=== PATIENT | male | born 2000 | race Caucasian/White ===

== ENCOUNTER 2023-01-21 15:58 | Inpatient (IN) | payer SELFPAY ==
[2023-01-21 16:08] VITALS: BP 137/81; PULSE 104; RESP 18; TEMP 36.6; O2SAT 97; BMI 46.2
--- NOTE | 2023-01-21 16:12 | ED_ITS ---
HPI - Abdominal Pain General Time Seen by Provider: 16:12 Date Seen: 01/21/23 Chief Complaint: Abdominal Pain Stated Complaint: Abdominal Pain Time Seen by Provider: 01/21/23 16:07 Source: patient and RN notes reviewed Mode of arrival: ambulatory Limitations: no limitations History of Present Illness HPI narrative: Aneudy is a very pleasant 32-year-old gentleman with history of occasional stomach ulcers treated with PPI eyes, history of elevated BMI who comes to the emergency room with acute abdominal pain with vomiting. Patient notes that his abdominal pain started approximately 24 hours ago. States he did not pay much attention to it but is gradually worsened and is now associated with vomiting that started this morning. He also agrees that his abdomen seems to be more distended. Area of discomfort he shows me is epigastric. He notes no bulging or history of hernias. Denies dysuria diarrhea or constipation. He has not experienced any fevers at this time. He has not taken any medications for discomfort. He is preferring to stay still as movement seems to increase his discomfort. Related Data Home Medications Medication Instructions Recorded Confirmed omeprazole magnesium 20 mg 20 mg PO DAILY 01/21/23 01/21/23 tablet,delayed release (Prilosec OTC) Allergies Allergy/AdvReac Type Severity Reaction Status Date / Time No Known Drug Allergies Allergy Verified 01/21/23 16:11 Review of Systems Status of ROS Reports: 10 or more systems reviewed and unremarkable except as noted in History and below Const Denies: fever or chills ENMT Denies: throat pain or difficulty swallowing Cardio Denies: chest pain or shortness of breath with exertion Resp Denies: shortness of breath GI Reports: abdominal pain, nausea and vomiting; Denies: diarrhea or difficulty swallowing Denies: painful urination or urinary frequency Musculo Denies: back pain Neuro Denies: headache PFSH PFSH Social History What is your current living situation?: I presently have a place to live Problems where you live: no known problems Problems where you live details: n/a In the past 12 months, utilities in danger of being shut off: no In the past 12 mos, have been you worried that your food would run out before you had money to buy more?: never true In the past 12 mos, the food you bought just didn't last and you didn't have money to buy more?: never true Highest level of school completed/degree received: high school graduate Smoking Status: Never smoker How often do you have a drink containing alcohol: 2-4 times a month How many standard drinks containing alcohol do you have on a typical day: 3 or 4 AUDIT-C Alcohol total score: 3 Non-prescribed substance use: denies use Caffeine: Yes (2 bottles of coke) How often does anyone, including family, friends and others, physically hurt you : never How often does anyone, including family, friends and others, insult or talk down to you: never How often does anyone, including family, friends and others, threaten you with harm: never How often does anyone, including family, friends and others, scream or curse at you: never service: No Exam Narrative: Exam Narrative: Alert and oriented. Does appear to be uncomfortable. Eyes are clear oral cavity moist mucous membranes. Heart with a tachycardic rate but normal rhythm. Lungs are clear bilaterally. Abdomen is obese. He has acute tenderness in the right upper quadrant. No masses are palpated. No pain with palpation in the right lower quadrants. Moving all extremities. Movement seems to exacerbate his discomfort. Const: Vital Signs, click to edit/add: Vital Signs - 24 hr 01/21/23 16:08 01/21/23 18:13 Temperature 97.8 F Pulse Rate [Right Pulse Oximeter] 104 H 87 Respiratory Rate 18 20 Blood Pressure [Ri ght Upper Arm] 137/81 Pulse Oximetry 97 97 Oxygen Delivery Me thod Room Air Room Air Documenting provider has reviewed patient's vital signs: yes Course Course Hospital Course: Differential diagnosis includes but is not limited to biliary colic, cholecystitis, esophageal spasm, gastritis, ulcer, small-bowel obstruction, gastroenteritis. Will place IV and use Toradol 15 mg IV, normal saline 1 L and Zofran 4 mg IV for discomfort. Recommend labs to include CBC, comprehensive panel, CRP, lactate and urinalysis. Plan on abdominal CT at this time. Reevaluation(s) Reevaluation #1: Patient noted no improvement with Toradol. Patient given morphine in this did increase his pain relief. CT does show enlarged gallbladder but no obvious stones. Ultrasound however show thickened gallbladder wall with stones in the gallbladder neck. Vital Signs Vital signs: Initial Vital Signs Temperature 97.8 F 01/21/23 16:08 Temperature Source Temporal Artery Scan 01/21/23 16:08 Pulse Rate 104 H 01/21/23 16:08 Pulse Rhythm Regular 01/21/23 16:08 Respiratory Rate 18 01/21/23 16:08 Blood Pressure 137/81 01/21/23 16:08 Blood Pressure Mean 99 01/21/23 16:08 Blood Pressure Position Sitting 01/21/23 16:08 Pulse Oximetry 97 01/21/23 16:08 Oxygen Delivery Method Room Air 01/21/23 16:08 Vital Signs Temperature 97.8 F 01/21/23 16:08 Pulse Rate 104 H 01/21/23 16:08 Respiratory Rate 18 01/21/23 16:08 Blood Pressure 137/81 01/21/23 16:08 Pulse Oximetry 97 01/21/23 16:08 Oxygen Delivery Method Room Air 01/21/23 16:08 Temperature 97.4 F L 01/22/23 11:50 Pulse Rate 93 01/22/23 11:50 Respiratory Rate 26 H 01/22/23 11:50 Blood Pressure 113/51 L 01/22/23 11:50 Pulse Oximetry 96 01/22/23 11:50 Oxygen Delivery Method Room Air 01/22/23 11:50 MDM - Abdominal Pain MDM Narrative Medical decision making narrative: 1. Cholecystitis-stones are in the gallbladder neck. Patient has a thickened gallbladder wall. Patient will be admitted to the [facility] for IV fluids, pain control with planned cholecystectomy tomorrow 01/22/2023. Pain poorly controlled with Toradol but morphine did seem to help. Zofran resolved nausea and vomiting. 2. Microcytic anemia-patient tells me that as a teenager his hemoglobin was down to 7 and I believe he received iron infusions. Hemoglobin today is 9.0 with an MCV is 64. Patient noted to state that he has a history of ulcers but has not noticed any blood in stool. Given Protonix 40 mg x1. Will order guaiac of stools. 3. Disposition-admit to the [facility] under the care of Dr. Melendez, surgical oncologist. She will put in orders for this patient. Lab Data Attestation: I reviewed the patient's lab results. Labs: Lab Results 01/21/23 Range/Units 16:38 WBC 12.65 H (4.50-11.00) K/uL RBC 5.08 (4.30-5.90) m/uL Hgb 9.0 L (13.5-17.5) gm/dL Hct 32.6 L (37.0-53.0) % MCV 64 L (80-100) fL MCH 18 L (26-34) pg MCHC 28 L (32-36) gm/dL RDW Coeff of Jenny 19.3 H (11.5-15.5) % Plt Count 433 (140-440) K/uL Neut % (Auto) 78.0 H (42.0-72.0) % Lymph % (Auto) 14.1 L (20-44) % [place] % (Auto) 6.6 (0.0-11.0) % Eos % (Auto) 1.0 (0.0-7.0) % Baso % (Auto) 0.2 (0.0-3.0) % Neut # (Auto) 9.90 H (1.7-7.0) K/uL Lymph # (Auto) 1.80 (0.90-2.90) K/uL [place] # (Auto) 0.80 (0.00-0.90) K/UL Eos # (Auto) 0.10 (0.00-0.50) K/uL Baso # (Auto) 0.00 (0.00-0.30) K/uL Abs Immat Gran (auto) 0.00 (0.00-0.30) K/uL Imm/Tot Granulo (auto) 0.1 % Diff Slide Review Acceptable Review (Acceptable) Sodium 136 (135-149) mmol/L Potassium 3.4 L (3.6-5.1) mmol/L Chloride 98 (96-114) mmol/L Carbon Dioxide 30 (20-32) mmol/L BUN 7 (5-24) mg/dL Creatinine 0.7 (0.5-1.5) mg/dL Estimated Creat Clear 177.72 Estimated GFR 124 ml/min Glucose 116 H (60-115) mg/dL Lactate 0.9 (0.5-1.9) mmol/L Calcium 9.4 (8.4-10.6) mg/dL Total Bilirubin 0.9 (0.1-1.5) mg/dL AST 21 (12-35) U/L ALT 18 (4-50) U/L Alkaline Phosphatase 83 (40-150) U/L C-Reactive Protein 5.5 H (0.5-1.0) mg/dL Total Protein 8.4 H (6.0-8.3) g/dL Albumin 4.5 (3.3-5.0) g/dL Lipase 32 (23-300) U/L Lab Acknowledgement Test Added Imaging Data CT scan - abdomen: Attestation: I have reviewed the pertinent imaging results. My impression: Thickening of the gallbladder wall and enlargement. Radiologist's impression: ower chest: The visualized lower lungs are aerated. No pleural or pericardial effusion. ABDOMEN: Liver: Normal enhancement. No focal suspicious hepatic lesions. Gallbladder and biliary: Mild gallbladder wall thickening. No discrete radiopaque gallstone. Normal caliber bile ducts. Spleen: Splenomegaly measuring 17 millimeters. Pancreas: Normal enhancement without peripancreatic inflammatory changes or ductal dilatation. Adrenal glands: Normal adrenal glands. Kidneys and ureters: Normal enhancement. No radio-opaque calculi. No hydroureteronephrosis. GI tract: The stomach is relatively decompressed. Normal caliber small and large bowel loops. Normal appendix. Vascular structures: Normal caliber abdominal aorta. Lymph nodes: No lymphadenopathy in the abdomen or pelvis by size criteria. Peritoneum: Trace amount free fluid in the pelvis with minimal associated stranding, axial image [id number]. No free air or focal drainable fluid collection. PELVIS: Genitourinary system: Urinary bladder is relatively decompressed. Normal size prostate. SKELETAL STRUCTURES AND SOFT TISSUES: Gynecomastia. Tiny sclerotic focus in the pelvis the distantly represents a bone island. Multilevel vertebral body hemangiomas. IMPRESSION: 1. No discrete acute abdominal or pelvic process. No obstruction. No hydroureteronephrosis. Normal appendix. 2. Trace amount of free fluid in the pelvis of indeterminate etiology. 3. Mild gallbladder wall thickening without radiopaque calculi. Recommend correlation with localized physical exam to assess for right upper quadrant pain. If there is high clinical concern for cholecystitis, this can be further evaluated with dedicated gallbladder ultrasound. 4. Splenomegaly. US - abdomen: Attestation: I have reviewed the pertinent imaging results. Discharge Plan Discharge Clinical Impression: Acute cholecystitis, Microcytic anemia Patient Disposition: Admitted As Observation Condition: Improved
--- NOTE | 2023-01-21 16:20 | CRLHL7_ITS ---
For Patients: As a result of the 21st Century Cures Act, medical imaging exams and procedure reports are released immediately into your electronic medical record. You may view this report before your referring provider. If you have questions, please contact your health care provider. INDICATION: epigastric pain, RUQ pain, vomiting TECHNIQUE: CT abdomen and pelvis acquired with 150 Isovue 370 cc Omnipaque 350 IV contrast. COMPARISON: None. FINDINGS: Lower chest: The visualized lower lungs are aerated. No pleural or pericardial effusion. ABDOMEN: Liver: Normal enhancement. No focal suspicious hepatic lesions. Gallbladder and biliary: Mild gallbladder wall thickening. No discrete radiopaque gallstone. Normal caliber bile ducts. Spleen: Splenomegaly measuring 17 millimeters. Pancreas: Normal enhancement without peripancreatic inflammatory changes or ductal dilatation. Adrenal glands: Normal adrenal glands. Kidneys and ureters: Normal enhancement. No radio-opaque calculi. No hydroureteronephrosis. GI tract: The stomach is relatively decompressed. Normal caliber small and large bowel loops. Normal appendix. Vascular structures: Normal caliber abdominal aorta. Lymph nodes: No lymphadenopathy in the abdomen or pelvis by size criteria. Peritoneum: Trace amount free fluid in the pelvis with minimal associated stranding, axial image [id number]. No free air or focal drainable fluid collection. PELVIS: Genitourinary system: Urinary bladder is relatively decompressed. Normal size prostate. SKELETAL STRUCTURES AND SOFT TISSUES: Gynecomastia. Tiny sclerotic focus in the pelvis the distantly represents a bone island. Multilevel vertebral body hemangiomas. IMPRESSION: 1. No discrete acute abdominal or pelvic process. No obstruction. No hydroureteronephrosis. Normal appendix. 2. Trace amount of free fluid in the pelvis of indeterminate etiology. 3. Mild gallbladder wall thickening without radiopaque calculi. Recommend correlation with localized physical exam to assess for right upper quadrant pain. If there is high clinical concern for cholecystitis, this can be further evaluated with dedicated gallbladder ultrasound. 4. Splenomegaly. Please note that all CT scans at this facility use dose modulation, iterative reconstruction, and/or weight-based dosing when appropriate to reduce radiation dose to as low as reasonably achievable. Dictated by Rafael Elam MD @ 01/21/2023 6:26:44 PM (Electronically Signed)
[2023-01-21] MEDS: 0.9 % SODIUM CHLORIDE 1000 ml 1,000 ML IV (16:41)
[2023-01-21] MEDS: ONDANSETRON 2 MG/ML inj 4 MG IVP (16:41)
[2023-01-21] MEDS: KETOROLAC 15 MG/ML inj IVP (16:41)
[2023-01-21 16:49] LABS: Lactate* 0.9 mmol/L (0.5-1.9)
[2023-01-21 16:53] LABS: Basophils Percent Auto 0.2 % (0.0-3.0); Hematocrit 32.6 % (37.0-53.0); Immature Granulocytes Pct Auto 0.1 %; Lymphocytes Percent Auto 14.1 % (20-44); Mean Corpuscular HGB Conc 28 gm/dL (32-36); Mean Corpuscular Hemoglobin 18 pg (26-34); Mean Corpuscular Volume 64 fL (80-100); Monocytes Percent Auto 6.6 % (0.0-11.0); Platelet Count* 433 K/uL (140-440); RDW Coefficient of Variation % 19.3 % (11.5-15.5); Red Blood Count 5.08 m/uL (4.30-5.90); White Blood Count* 12.65 K/uL (4.50-11.00)
[2023-01-21 16:55] LABS: Slide Review Reflex Yes
[2023-01-21 17:05] LABS: Albumin* 4.5 g/dL (3.3-5.0); Chloride* 98 mmol/L (96-114); Potassium* 3.4 mmol/L (3.6-5.1); Sodium* 136 mmol/L (135-149)
[2023-01-21 17:07] LABS: Creatinine* 0.7 mg/dL (0.5-1.5); Est. Creatinine Clearance* 177.72; Estimated Glomerular Filt Rate 124 ml/min
[2023-01-21 17:08] LABS: Alanine Aminotransferase* 18 U/L (4-50); Alkaline Phosphatase* 83 U/L (40-150); Aspartate Amino Transferase* 21 U/L (12-35); Bilirubin Total* 0.9 mg/dL (0.1-1.5); Blood Urea Nitrogen* 7 mg/dL (5-24); Carbon Dioxide* 30 mmol/L (20-32); Glucose* 116 mg/dL (60-115); Total Protein* 8.4 g/dL (6.0-8.3)
[2023-01-21 17:09] LABS: Calcium* 9.4 mg/dL (8.4-10.6)
[2023-01-21 17:11] LABS: C Reactive Protein* 5.5 mg/dL (0.5-1.0)
[2023-01-21 17:19] LABS: Slide Review Acceptable Review (Acceptable)
[2023-01-21] MEDS: MORPHINE 4 MG/ML INJ IVP (18:02)
[2023-01-21 18:13] VITALS: PULSE 87; RESP 20; O2SAT 97
[2023-01-21 18:15] LABS: Lipase* 32 U/L (23-300)
--- NOTE | 2023-01-21 18:31 | CRLHL7_ITS ---
For Patients: As a result of the Cures Act, medical imaging exams and procedure reports are released immediately into your electronic medical record. You may view this report before your referring provider. If you have questions, please contact your health care provider. INDICATION: Right upper quadrant pain. TECHNIQUE: Ultrasound abdomen limited. Sonographic images of the right upper quadrant were obtained using castañeda-scale and color Doppler images. COMPARISON: CT abdomen/pelvis earlier same day dated 01/21/2023. FINDINGS: Liver: Increased echogenicity of the liver parenchyma. Bile ducts: Intrahepatic bile ducts are not dilated. The common bile duct measures 0.5 cm. Gallbladder: Large gallstones at the gallbladder neck with posterior acoustic shadowing measuring up to 2.0 cm. Mild gallbladder wall thickening, without significant pericholecystic fluid. Sonographic Ray sign was negative, however it is noted that the patient was given pain medication prior to study. Pancreas: Pancreas is poorly visualized secondary to acoustic shadowing from overlying/adjacent bowel gas. Right kidney: The right kidney measures 14.1 cm in length. No renal calculi or significant hydronephrosis is identified. IMPRESSION: 1. Cholelithiasis. Although there is no significant gallbladder distention or pericholecystic fluid, there is mild gallbladder wall thickening. Sonographic Ray`s sign could not be adequately assessed, as patient had been given pain medication prior to study. Findings are equivocal for acute cholecystitis. 2. Increased echogenicity of the liver parenchyma, compatible with diffuse hepatic steatosis. Dictated by Luzma Willett MD @ 01/21/2023 8:13:44 PM (Electronically Signed)
[2023-01-21] MEDS: PIPERACILLIN/TAZOBACTAM 3.375 GM in 0.9 % SODIUM CHLORIDE Mini-bag 100 ML IVPB (19:31)
[2023-01-21] MEDS: LACTATED RINGERS 1000 ML 1,000 ML 125 ML IV (20:19)
[2023-01-21] MEDS: PANTOPRAZOLE SODIUM 40 MG INJ IVP (20:20)
--- NOTE | 2023-01-21 20:48 | ED.NURSE ---
patient report given to alli GIBBONS. Patient going to room 281
[2023-01-21 20:52] VITALS: BP 118/78; PULSE 89; RESP 20
[2023-01-21] MEDS: OXYCODONE 5 MG TABLET PO (21:52)
[2023-01-21 22:00] VITALS: BP 137/67; PULSE 88; RESP 22; TEMP 36.7; O2SAT 96; BMI 47.7
[2023-01-21 23:26] VITALS: BP 127/71; PULSE 86; RESP 20; TEMP 36.2; O2SAT 99
[2023-01-22] VITALS (16 sets, daily range): BP systolic 102–127; BP diastolic 48–70; PULSE 70–93; RESP 16–98; TEMP 36.1–37.1; O2SAT 92–99
[2023-01-22] MEDS: 0.9 % SODIUM CHLORIDE 250 ml IV (01:00)
[2023-01-22] MEDS: PIPERACILLIN/TAZOBACTAM 3.375 GM in 0.9 % SODIUM CHLORIDE Mini-bag 100 ML IVPB ×4 (01:00→19:27)
[2023-01-22] MEDS: LACTATED RINGERS 1000 ML 1,000 ML 125 ML IV (04:30)
[2023-01-22] MEDS: OXYCODONE 5 MG TABLET PO (04:30)
--- NOTE | 2023-01-22 06:22 | PC.NURSE ---
End of shift: Arrived to the floor around 2100. VSS w/ sats >90% on RA. Rating abd pain 1-4/10. PRN oxycodone given w/ stated relief. Denies n/v. Bowel sounds active and abd tender on palpation. SBA in room. Pt?s Rea bo updated via phone with?pt?s approval. Pt is from [place] and father is arriving sometime in the morning. NPO since midnight.
[2023-01-22 07:44] LABS: Basophils Absolute Auto 0.02 K/uL (0.00-0.30); Basophils Percent Auto 0.2 % (0.0-3.0); Eosinophils Absolute Auto 0.29 K/uL (0.00-0.50); Eosinophils Percent Auto 3.5 % (0.0-7.0); Hematocrit 27.6 % (37.0-53.0); Immature Granulocytes Abs Auto 0.01 K/uL (0.00-0.30); Immature Granulocytes Pct Auto 0.1 %; Lymphocytes Absolute Auto 1.83 K/uL (0.90-2.90); Lymphocytes Percent Auto 22.3 % (20-44); Mean Corpuscular HGB Conc 28 gm/dL (32-36); Mean Corpuscular Hemoglobin 18 pg (26-34); Mean Corpuscular Volume 66 fL (80-100); Monocytes Percent Auto 7.2 % (0.0-11.0); Neutrophils Absolute Auto 5.45 K/uL (1.7-7.0); Neutrophils Percent Auto 66.7 % (42.0-72.0); Platelet Count* 334 K/uL (140-440); RDW Coefficient of Variation % 19.3 % (11.5-15.5); White Blood Count* 8.19 K/uL (4.50-11.00)
[2023-01-22 07:45] LABS: Albumin* 3.8 g/dL (3.3-5.0); Chloride* 99 mmol/L (96-114)
[2023-01-22 07:46] LABS: Potassium* 3.3 mmol/L (3.6-5.1); Sodium* 135 mmol/L (135-149)
[2023-01-22 07:48] LABS: Bilirubin Direct* 0.2 mg/dL (0.0-0.5); Bilirubin Total* 0.9 mg/dL (0.1-1.5); Carbon Dioxide* 30 mmol/L (20-32); Creatinine* 0.8 mg/dL (0.5-1.5); Est. Creatinine Clearance* 170.17; Estimated Glomerular Filt Rate 127 ml/min; Total Protein* 7.3 g/dL (6.0-8.3)
[2023-01-22 07:49] LABS: Alanine Aminotransferase* 18 U/L (4-50); Alkaline Phosphatase* 67 U/L (40-150); Aspartate Amino Transferase* 22 U/L (12-35); Blood Urea Nitrogen* 7 mg/dL (5-24); Calcium* 8.8 mg/dL (8.4-10.6); Glucose* 84 mg/dL (60-115); Lipase* 25 U/L (23-300)
[2023-01-22 08:14] LABS: Hemoglobin* 7.6 gm/dL (13.5-17.5); Slide Review Reflex Yes
[2023-01-22 08:15] LABS: Slide Review Acceptable Review (Acceptable)
[2023-01-22] MEDS: HYDROmorphone 0.5 mg/0.5 ml inj IVP (09:37)
--- NOTE | 2023-01-22 10:20 | W.ANESCHARGE ---
Anesthesia Charges Start Date/Time Anesthesia Start Date: 01/22/23 Anesthesia Start Time: 10:40 Stop Date/Time Anesthesia Stop Date: 01/22/23 Anesthesia Stop Time: 11:03
--- NOTE | 2023-01-22 11:04 | W.ANESCHARGE ---
Anesthesia Charges Start Date/Time Anesthesia Start Date: 01/22/23 Anesthesia Start Time: 10:40 Stop Date/Time Anesthesia Stop Date: 01/22/23 Anesthesia Stop Time: 11:03
[2023-01-22 14:25] LABS: Vitamin B12* 388 pg/mL (243-894)
[2023-01-22 14:26] LABS: Ferritin* 11.5 ng/mL (17.9-464.0)
[2023-01-22 14:46] LABS: Total Iron Binding Capacity 419 ug/dL (261-462)
[2023-01-22 14:55] LABS: Iron* 28 ug/dL (49-181); Percent Iron Saturation 7 % (20-50)
--- NOTE | 2023-01-22 15:14 | P.GSHP_ITS ---
History of Present Illness History of Present Illness Date Seen: 01/22/23 Chief complaint: Abdominal Pain Narrative: Aneudy Corcoran is a 22 year old male who presented to the emergency department yesterday evening for epigastric abdominal pain. He has never had pain like this before. Nothing seemed to make it better, which prompted him to come in. He did have associated nausea with bilious emesis. He has since been tolerating clear liquids. His abdominal pain has improved with pain medications, but is still present. He denies any fevers at home. He is having regular bowel movements. He has never had abdominal surgery before. After talking with the patient and his mom he does have a history of gastric ulcers and polyps on his esophagus. He has had an upper and lower endoscopy in the past. He comes from out of town and does not have a primary care provider. Review of Systems Status of ROS: Reports: 6 or more systems reviewed and unremarkable except as noted in History and below PFSH PFSH Social History What is your current living situation?: I presently have a place to live Problems where you live: no known problems Problems where you live details: n/a In the past 12 months, utilities in danger of being shut off: no In the past 12 mos, have been you worried that your food would run out before you had money to buy more?: never true In the past 12 mos, the food you bought just didn't last and you didn't have money to buy more?: never true Highest level of school completed/degree received: high school graduate Smoking Status: Never smoker How often do you have a drink containing alcohol: 2-4 times a month How many standard drinks containing alcohol do you have on a typical day: 3 or 4 AUDIT-C Alcohol total score: 3 Non-prescribed substance use: denies use Caffeine: Yes (2 bottles of coke) How often does anyone, including family, friends and others, physically hurt you : never How often does anyone, including family, friends and others, insult or talk down to you: never How often does anyone, including family, friends and others, threaten you with harm: never How often does anyone, including family, friends and others, scream or curse at you: never service: No Meds Home Medications and Allergies Home Medications Medication Instructions Recorded Confirmed Type omeprazole magnesium 20 mg 20 mg PO DAILY 01/21/23 01/21/23 History tablet,delayed release (Prilosec OTC) Allergies Allergy/AdvReac Type Severity Reaction Status Date / Time No Known Drug Allergies Allergy Verified 01/21/23 16:11 Exam Narrative: Exam Narrative: General: Alert and oriented, no acute distress Respiratory: Equal breath rise bilaterally, maintained on room air CV: Well perfused, regular rhythm and rate Abdomen: Soft, tender to palpation epigastric with no guarding or rebound. Obese abdomen. Const: Vital Signs, click to edit/add: Vital Signs - 24 hr 01/21/23 16:08 01/21/23 18:13 01/21/23 20:52 Temperature 97.8 F Pulse Rate [Pulse Oximeter] Pulse Rate [Right Pulse Oximeter] 104 H 87 89 Respiratory Rate 18 20 20 Blood Pressure [Le ft Arm] Blood Pressure [Ri ght Arm] Blood Pressure [Ri ght Upper Arm] 137/81 118/78 Pulse Oximetry 97 97 Oxygen Delivery Me thod Room Air Room Air 01/21/23 22:00 01/21/23 23:26 01/22/23 03:00 Temperature 98.1 F 97.1 F L 98.7 F Pulse Rate [Pulse Oximeter] 88 86 83 Pulse Rate [Right Pulse Oximeter] Respiratory Rate 22 20 22 Blood Pressure [Le ft Arm] Blood Pressure [Ri ght Arm] 137/67 127/71 117/66 Blood Pressure [Ri ght Upper Arm] Pulse Oximetry 96 99 97 Oxygen Delivery Me thod Room Air Room Air Room Air 01/22/23 07:38 01/22/23 07:38 01/22/23 11:50 Temperature 98.7 F 97.4 F L Pulse Rate [Pulse Oximeter] 89 89 93 Pulse Rate [Right Pulse Oximeter] Respiratory Rate 16 16 26 H Blood Pressure [Le ft Arm] 126/53 L 113/51 L Blood Pressure [Ri ght Arm] Blood Pressure [Ri ght Upper Arm] Pulse Oximetry 95 96 Oxygen Delivery Me thod Room Air Room Air Results Results Labs: LFTs within normal limits. Leukocytosis resolved this morning, 12 in the emergency department last night. His hemoglobin did drop unlikely was 9.0 in the evening, 7.[address] scan report/results: report reviewed and image reviewed Abdominal ultrasound report/results: report reviewed and image reviewed Assessment and Plan Assessment and plan (1) Acute cholecystitis: Status: Acute Plan Patient is a 22-year-old male who came into the emergency department with clinical workup suspicious for acute cholecystitis versus gastritis versus gastric ulcers. Abdominal ultrasound does demonstrate the presence of stones, there is some dilation of the gallbladder but no significant gallbladder wall thickening or pericholecystic fluid. Most of his pain is not in the right upper quadrant, but more focused in the epigastrium. Given his history of gastric ulcers and hemoglobin drop I did discuss with the patient the recommendation for an upper endoscopy to rule out the stomach as the etiology of his symptoms. An upper endoscopy was performed by Dr. Wilcox and per that provider within normal limits. There were a few esophageal polyps which were biopsied, some mi ld evidence of reflux, but no evidence of bleeding or ulceration. At this time the patient is still symptomatic, which makes the gallbladder more likely as the culprit. On speaking with the hospitalist, she does believe that his anemia is more chronic in nature with low concern for active bleeding. He is receiving 1 unit PRBC. I had a detailed conversation with the patient regarding the diagnosis of acute cholecystitis. We discussed the treatment options including observation with diet modification and laparoscopic cholecystectomy. We discussed the risks of surgery (including but not limited to) the risks of bleeding, infection, injury to other structures in the abdomen including bile duct injury, bile leak and conversion to an open operation. We discussed the possibility that the patient's pain not improve with surgery. We discussed the possibility of permanent post-operative diarrhea that may require medical management. Additionally, the conceivably of complications requiring additional surgery or further hospitalization were also discussed including the risks of IA, respiratory failure, stroke and blood clots. The patient voiced an understanding of our conversation, had the opportunity to ask questions, agreed to accept the risks of surgery and asked that we proceed with surgery. Will plan for patient to go to the operating room tomorrow for laparoscopic cholecystectomy. He will complete is 1 unit PRBC and plan for recheck labs in the morning.
--- NOTE | 2023-01-22 16:29 | PM.IMCN1 ---
Date of Consult Patient: Other Consult date: 01/22/23 Primary Care Provider: Not a Local Provider Consult Narrative Reason for consult: microcytic anemia Narrative: Aneudy Corcoran is a 22 year old male with a history of anemia and esophageal ulcers who takes a PPI most days of the week who had right upper quadrant abdominal pain that started about a day and a half ago and then he developed vomiting yesterday. He denies any hematemesis or coffee-ground emesis. Denies melena or hematochezia. He has no regular doctor and has not seen 1 in several years now with the exception of an EGD last year for what he tells me is an esophageal ulcer. He has been in his usual state of health prior to the abdominal pain and denies any fevers or chills. He denies any chest pain, shortness of breath, difficulty doing his usual activities. His family tells me that he is not pale. I am unable to find records through [facility] or [facility] [place] everywhere using his name and birthday. I spoke with Dr. Wilcox after he completed the EGD and there were no ulcers or gastritis. There were 2 mm polypoid lesions that he biopsied at the distal esophagus. No other findings. Biopsies pending. Review of Systems Status of ROS: Reports: 10 or more systems reviewed and unremarkable except as noted in History and below [facility] Medical History (Updated 01/22/23 @ 16:48 by Tali Be MD) Alcohol use ?Z78.9 - Other specified health status (ICD-10) Esophageal ulcer ?K22.10 - Ulcer of esophagus without bleeding (ICD-10) Microcytic anemia ?D50.9 - Iron deficiency anemia, unspecified (ICD-10) Surgical History (Updated 01/22/23 @ 16:26 by Tali Be MD) H/O esophagogastroduodenoscopy ?Z98.890 - Other specified postprocedural states (ICD-10) Family History (Updated 01/22/23 @ 16:27 by Tali Be MD) Mother Anemia Maternal Grandmother Anemia Social History (Updated 01/22/23 @ 16:29 by Tali Be MD) Narrative: Patient lives in [place]. His fiancee, father, and younger brother are all in the room with him. He travels a lot for work. He works in construction. He denies tobacco use and is a lifelong nonsmoker. Drinks once a week, usually 10 beers at a sitting. Denies recreational drug use. What is your current living situation?: I presently have a place to live Problems where you live: no known problems Problems where you live details: n/a In the past 12 months, utilities in danger of being shut off: no In the past 12 mos, have been you worried that your food would run out before you had money to buy more?: never true In the past 12 mos, the food you bought just didn't last and you didn't have money to buy more?: never true Highest level of school completed/degree received: high school graduate Smoking Status: Never smoker How often do you have a drink containing alcohol: 2-4 times a month How many standard drinks containing alcohol do you have on a typical day: 3 or 4 AUDIT-C Alcohol total score: 3 Non-prescribed substance use: denies use Caffeine: Yes (2 bottles of coke) How often does anyone, including family, friends and others, physically hurt you: never How often does anyone, including family, friends and others, insult or talk down to you: never How often does anyone, including family, friends and others, threaten you with harm: never How often does anyone, including family, friends and others, scream or curse at you: never service: No Meds Home Medications and Allergies Home Medications Medication Instructions Recorded Confirmed Type omeprazole magnesium 20 mg 20 mg PO DAILY 01/21/23 01/21/23 History tablet,delayed release (Prilosec OTC) Allergies Allergy/AdvReac Type Severity Reaction Status Date / Time No Known Drug Allergies Allergy Verified 01/21/23 16:11 Exam Narrative: Exam Narrative: General: No acute distress. Awake alert oriented x3. Obese, cushingoid. HEENT: Normocephalic atraumatic, pupils equally round and reactive to light and accommodation. Oropharynx clear. Mucous membranes are moist. No JVD. Cardiovascular: Regular rate and rhythm. No murmurs, gallops, or rubs. Chest: No increased work of breathing. Clear to auscultation bilaterally. No crackles or wheezes. Abdomen: Bowel sounds present. Soft, obese, tender in the right upper quadrant with positive Ray sign. No rebound tenderness or guarding. No hepatosplenomegaly or masses, although exam is limited by obesity. Extremities: No edema, no cyanosis or clubbing. Skin: No jaundice, no pallor, no rashes. Neuro: Grossly intact. No focal deficits. Const: Vital Signs, click to edit/add: Vital Signs - 24 hr 01/21/23 18:13 01/21/23 20:52 01/21/23 22:00 Temperature 98.1 F Pulse Rate [Pulse Oximeter] 88 Pulse Rate [Right Pulse Oximeter] 87 89 Respiratory Rate 20 20 22 Blood Pressure [Le ft Arm] Blood Pressure [Ri ght Arm] 137/67 Blood Pressure [Ri ght Upper Arm] 118/78 Pulse Oximetry 97 96 Oxygen Delivery Me thod Room Air Room Air 01/21/23 23:26 01/22/23 03:00 01/22/23 07:38 Temperature 97.1 F L 98.7 F 98.7 F Pulse Rate [Pulse Oximeter] 86 83 89 Pulse Rate [Right Pulse Oximeter] Respiratory Rate 20 22 16 Blood Pressure [Le ft Arm] 126/53 L Blood Pressure [Ri ght Arm] 127/71 117/66 Blood Pressure [Ri ght Upper Arm] Pulse Oximetry 99 97 95 Oxygen Delivery Me thod Room Air Room Air Room Air 01/22/23 07:38 01/22/23 11:50 Temperature 97.4 F L Pulse Rate [Pulse Oximeter] 89 93 Pulse Rate [Right Pulse Oximeter] Respiratory Rate 16 26 H Blood Pressure [Le ft Arm] 113/51 L Blood Pressure [Ri ght Arm] Blood Pressure [Ri ght Upper Arm] Pulse Oximetry 96 Oxygen Delivery Me thod Room Air Labs Labs: Short CBC 01/21/23 01/22/23 Range/Units 16:38 07:10 WBC 12.65 H 8.19 (4.50-11.00) K/uL Hgb 9.0 L 7.6 L* (13.5-17.5) gm/dL Hct 32.6 L 27.6 L (37.0-53.0) % Plt Count 433 334 (140-440) K/uL BMP 01/21/23 01/22/23 16:38 07:10 Sodium 136 135 Potassium 3.4 L 3.3 L Chloride 98 99 Carbon Dioxide 30 30 BUN 7 7 Creatinine 0.7 0.8 Glucose 116 H 84 Calcium 9.4 8.8 Liver Function 01/21/23 01/22/23 Range/Units 16:38 07:10 Total Bilirubin 0.9 0.9 (0.1-1.5) mg/dL Direct Bilirubin 0.2 (0.0-0.5) mg/dL AST 21 22 (12-35) U/L ALT 18 18 (4-50) U/L Alkaline Phosphatase 83 67 (40-150) U/L Albumin 4.5 3.8 (3.3-5.0) g/dL Ordering Physician: Caity Cesar M.D. Date of Service: 01/21/23 Procedure(s): CT abdomen pelvis w con Accession Number(s): [id number] cc: Caity Cesar M.D.; Provider,Not a Local~ For Patients: As a result of the Cures Act, medical imaging exams and procedure reports are released immediately into your electronic medical record. You may view this report before your referring provider. If you have questions, please contact your health care provider. INDICATION: epigastric pain, RUQ pain, vomiting TECHNIQUE: CT abdomen and pelvis acquired with 150 Isovue 370 cc Omnipaque 350 IV contrast. COMPARISON: None. FINDINGS: Lower chest: The visualized lower lungs are aerated. No pleural or pericardial effusion. ABDOMEN: Liver: Normal enhancement. No focal suspicious hepatic lesions. Gallbladder and biliary: Mild gallbladder wall thickening. No discrete radiopaque gallstone. Normal caliber bile ducts. Spleen: Splenomegaly measuring 17 millimeters. Pancreas: Normal enhancement without peripancreatic inflammatory changes or ductal dilatation. Adrenal glands: Normal adrenal glands. Kidneys and ureters: Normal enhancement. No radio-opaque calculi. No hydroureteronephrosis. GI tract: The stomach is relatively decompressed. Normal caliber small and large bowel loops. Normal appendix. Vascular structures: Normal caliber abdominal aorta. Lymph nodes: No lymphadenopathy in the abdomen or pelvis by size criteria. Peritoneum: Trace amount free fluid in the pelvis with minimal associated stranding, axial image [id number]. No free air or focal drainable fluid collection. PELVIS: Genitourinary system: Urinary bladder is relatively decompressed. Normal size prostate. SKELETAL STRUCTURES AND SOFT TISSUES: Gynecomastia. Tiny sclerotic focus in the pelvis the distantly represents a bone island. Multilevel vertebral body hemangiomas. IMPRESSION: 1. No discrete acute abdominal or pelvic process. No obstruction. No hydroureteronephrosis. Normal appendix. 2. Trace amount of free fluid in the pelvis of indeterminate etiology. 3. Mild gallbladder wall thickening without radiopaque calculi. Recommend correlation with localized physical exam to assess for right upper quadrant pain. If there is high clinical concern for cholecystitis, this can be further evaluated with dedicated gallbladder ultrasound. 4. Splenomegaly. Please note that all CT scans at this facility use dose modulation, iterative reconstruction, and/or weight-based dosing when appropriate to reduce radiation dose to as low as reasonably achievable. Dictated by Rafael Elam MD @ 01/21/2023 6:26:44 PM (Electronically Signed) Ordering Physician: Caity Cesar M.D. Date of Service: 01/21/23 Procedure(s): US abdomen limited Accession Number(s): [id number] cc: Caity Cesar M.D.; Provider,Not a Local~ For Patients: As a result of the Cures Act, medical imaging exams and procedure reports are released immediately into your electronic medical record. You may view this report before your referring provider. If you have questions, please contact your health care provider. INDICATION: Right upper quadrant pain. TECHNIQUE: Ultrasound abdomen limited. Sonographic images of the right upper quadrant were obtained using castañeda-scale and color Doppler images. COMPARISON: CT abdomen/pelvis earlier same day dated 01/21/2023. FINDINGS: Liver: Increased echogenicity of the liver parenchyma. Bile ducts: Intrahepatic bile ducts are not dilated. The common bile duct measures 0.5 cm. Gallbladder: Large gallstones at the gallbladder neck with posterior acoustic shadowing measuring up to 2.0 cm. Mild gallbladder wall thickening, without significant pericholecystic fluid. Sonographic Ray sign was negative, however it is noted that the patient was given pain medication prior to study. Pancreas: Pancreas is poorly visualized secondary to acoustic shadowing from overlying/adjacent bowel gas. Right kidney: The right kidney measures 14.1 cm in length. No renal calculi or significant hydronephrosis is identified. IMPRESSION: 1. Cholelithiasis. Although there is no significant gallbladder distention or pericholecystic fluid, there is mild gallbladder wall thickening. Sonographic Ray`s sign could not be adequately assessed, as patient had been given pain medication prior to study. Findings are equivocal for acute cholecystitis. 2. Increased echogenicity of the liver parenchyma, compatible with diffuse hepatic steatosis. Dictated by Luzma Willett MD @ 01/21/2023 8:13:44 PM (Electronically Signed) Assessment and Plan Assessment and plan (1) Symptomatic cholelithiasis: Problem comment: Recommend treating anemia with blood transfusion, 1 unit should suffice and can proceed with surgery tomorrow. I have spoken with Dr. Melendez about this. Status: Acute (2) Acute cholecystitis: Problem comment: Patient is on Zosyn and will be getting cholecystectomy tomorrow morning. Status: Acute (3) Microcytic anemia: Problem comment: - Longstanding h/o anemia from the age of at least 13. This was previously attributed to esophageal ulcers, however per history he has not had much follow-up in between, so it is not clear if anemia resolves after ulcers stop bleeding. He has had iron infusion least once in the past. - labs are consistent with both iron deficiency anemia and possibly anemia of chronic disease since TIBC is not elevated despite deficiency. Recommend giving a unit of blood preoperatively. Patient is not symptomatic and I suspect this has been a chronic deficiency. Recommend starting oral iron as an outpatient and following up to establish primary care in his home town for follow-up and possibly further investigation as needed. Status: Acute (4) Iron deficiency: Problem comment: Will start oral iron. Again I recommend outpatient follow-up and establishing primary care. Status: Acute (5) Folate deficiency: Status: Deleted (6) Splenomegaly: Problem comment: Recommend avoiding alcohol and following up to establish primary care an outpatient for follow-up and possibly further workup. Status: Acute (7) Hepatic steatosis: Problem comment: Possibly related to alcohol use. Recommend avoiding alcohol. Status: Acute (8) Alcohol use: Problem comment: Patient reports history of using alcohol more heavily, but quit this few years ago. Currently drinks 10 beers once a week. - recommended abstinence from alcohol at this point and establish primary care. Status: Acute
[2023-01-22] MEDS: FERROUS SULFATE 325 MG TABLET PO (18:06)
--- NOTE | 2023-01-22 18:29 | PC.NURSE ---
End of Shift: Patient pleasant and cooperative. Patient vitally stable, lungs clear, BS WNL, IV currently transfusing blood. Patient independent in room. Patient has rated pain at most 4/10 but also 0. Patient given 0.5mg Dilaudid once. Patient urinating and tolerating clear liquids. Oxygen 1L applied by Nasal canula when patient fell asleep. Patient tolerating blood transfusion. Patient purchased a fan this shift.
--- NOTE | 2023-01-22 20:06 | PC.NURSE ---
End of Shift: Patient pleasant and cooperative. Patient has been hypotensive towards end of shift during blood transfusion, but stable. Lungs clear, BS WNL, IV transfusing blood and running LR at 125 when done with blood. Patient independent in room. Patient rated abdominal pain at most 4/10, dilauded given once. Patient tolerated first unit of blood well. One liter of oxygen NC applied when patient is sleeping, patient sats drop to mid 80's, patient snores very well. Patient tolerating clear liquids and urinating
[2023-01-22 23:35] LABS: Hemoglobin* 9.1 gm/dL (13.5-17.5)
[2023-01-23] VITALS (20 sets, daily range): BP systolic 119–159; BP diastolic 49–90; PULSE 76–102; RESP 20–32; TEMP 36.2–37.1; O2SAT 88–100
[2023-01-23] MEDS: PIPERACILLIN/TAZOBACTAM 3.375 GM in 0.9 % SODIUM CHLORIDE Mini-bag 100 ML IVPB ×2 (01:17→07:34)
[2023-01-23] MEDS: LACTATED RINGERS 1000 ML 1,000 ML 125 ML IV (01:18)
[2023-01-23] MEDS: 0.9 % SODIUM CHLORIDE 250 ml IV (01:18)
[2023-01-23] MEDS: MELATONIN 3 MG TABLET PO (01:23)
[2023-01-23 07:28] LABS: HCO3 VBG 27 mmol/L (21-28); PCO2 VBG 49 mmHG (40-50); PO2 VBG 45.3 mmHG (25-47); pH VBG 7.359 (7.32-7.43)
[2023-01-23 07:32] LABS: Hemoglobin* 9.4 gm/dL (13.5-17.5)
--- NOTE | 2023-01-23 07:35 | PC.NURSE ---
Pt alert and oriented x3. Afebrile. Pt denies pain, chest pain, SOB, and N/V. Pt is up IND but calls for assist with IV pole. Pt is tolerating a?NPO diet since 0000, voiding.?Pt slept throughout most of night.?
--- NOTE | 2023-01-23 09:41 | PM.GSPN ---
Subjective Subjective Date Seen: 01/23/23 Interval history: Patient is doing well this morning. He is anxious to go to surgery. He denies any abdominal pain at this time. Exam Narrative: Exam Narrative: General: Alert and oriented, no acute distress Respiratory: Equal breath rise bilaterally, maintained on room air CV: Regular rhythm rate, well perfused Abdomen: Soft, nontender nondistended Const: Vital Signs, click to edit/add: Vital Signs - 24 hr 01/22/23 11:50 01/22/23 16:50 01/22/23 16:51 Temperature 97.4 F L 97.2 F L 97.2 F L Pulse Rate 90 Pulse Rate [Pulse Oximeter] 93 90 Respiratory Rate 26 H 24 24 Blood Pressure 103/54 L Blood Pressure [Le ft Arm] 113/51 L 103/54 L Blood Pressure [Ri ght Arm] Pulse Oximetry 96 93 94 Oxygen Delivery Me thod Room Air Room Air 01/22/23 17:08 01/22/23 17:50 01/22/23 18:54 Temperature 97.1 F L 97 F L Pulse Rate 79 77 Pulse Rate [Pulse Oximeter] 90 Respiratory Rate 24 24 24 Blood Pressure 105/48 L 124/59 L Blood Pressure [Le ft Arm] Blood Pressure [Ri ght Arm] Pulse Oximetry 94 99 Oxygen Delivery Me thod 01/22/23 20:08 01/22/23 20:15 01/22/23 20:30 Temperature 97.1 F L 97.1 F L 97.2 F L Pulse Rate 76 72 70 Pulse Rate [Pulse Oximeter] Respiratory Rate 24 98 H 20 Blood Pressure 126/70 117/67 127/69 Blood Pressure [Le ft Arm] Blood Pressure [Ri ght Arm] Pulse Oximetry 95 94 Oxygen Delivery Me thod 01/22/23 20:30 01/22/23 21:15 01/22/23 22:20 Temperature 97.7 F 97.1 F L 97.7 F Pulse Rate 74 82 Pulse Rate [Pulse Oximeter] 70 Respiratory Rate 20 22 20 Blood Pressure 120/52 L 113/48 L Blood Pressure [Le ft Arm] 127/69 Blood Pressure [Ri ght Arm] Pulse Oximetry 94 93 94 Oxygen Delivery Me thod Room Air 01/22/23 22:54 01/23/23 04:30 01/23/23 07:00 Temperature 97.5 F L 97.7 F Pulse Rate 78 Pulse Rate [Pulse Oximeter] 77 Respiratory Rate 22 20 Blood Pressure 123/52 L Blood Pressure [Le ft Arm] Blood Pressure [Ri ght Arm] 119/81 Pulse Oximetry 92 98 100 Oxygen Delivery Me thod Room Air Room Air 01/23/23 07:00 01/23/23 07:00 Temperature 97.6 F Pulse Rate Pulse Rate [Pulse Oximeter] 76 76 Respiratory Rate 20 20 Blood Pressure Blood Pressure [Le ft Arm] Blood Pressure [Ri ght Arm] 133/71 Pulse Oximetry 100 Oxygen Delivery Me thod Room Air Labs/Imaging Labs Labs: Hemoglobin 9.4 this morning. Progress Note: A&P Assessment and plan (1) Symptomatic cholelithiasis: Problem details: Recommend treating anemia with blood transfusion, 1 unit should suffice and can proceed with surgery tomorrow. I have spoken with Dr. Melendez about this. Status: Acute Assessment and Plan: Patient is a 22-year-old male with symptomatic cholelithiasis. Concern yesterday for possible gastric etiology given the patient's history of gastric ulcers. An EGD was performed, which was within normal limits. There were some esophageal polyps visualized in biopsied. He did receive 1 unit PRBC for chronic anemia with an appropriate rise in his hemoglobin of 9.4. Risks and benefits of operative intervention were discussed at length with the patient. Risks included but was not limited to: Bleeding, infection, risk of damage to surrounding structures, possible need for additional procedures, possible need to convert to an open operation and postoperative complications such as pneumonia, pulmonary emboli or NH. All questions and concerns were addressed with the patient agreeing to proceed. -OR this morning for laparoscopic cholecystectomy -anticipate discharge later this evening.
--- NOTE | 2023-01-23 10:32 | W.ANESCHARGE ---
Anesthesia Charges Start Date/Time Anesthesia Start Date: 01/23/23 Anesthesia Start Time: 10:38 Stop Date/Time Anesthesia Stop Date: 01/23/23 Anesthesia Stop Time: 13:31
[2023-01-23] MEDS: BUPIVACAINE 0.5% 30 ML 20 ML INJECTION (12:57)
--- NOTE | 2023-01-23 13:05 | P.GSOP_ITS ---
Operative Note Date of procedure: 01/23/23 Pre-op diagnosis: Acute cholecystitis Post-op diagnosis: Same Type of Procedure: Laparoscopic cholecystectomy Indications: Patient is a 22-year-old male who presented with clinical workup consistent with acute cholecystitis. Risks and benefits of operative intervention were discussed at length with the patient. Risks included but was not limited to: Bleeding, infection, risk of damage to surrounding structures, possible need for additional procedures, possible need to convert to an open operation and postoperative complications such as pneumonia, pulmonary emboli or [place]. All questions and concerns were addressed with the patient agreeing to proceed. Procedure Description: After discussing the risks and benefits of the procedure, the patient signed informed consent.? The operative site was marked and the patient was brought to the operating room and placed on the operating table in supine position.? Care was taken to pad the patient's pressure points.?? The patient was then intubated by anesthesia.?? The operative site was then prepped and draped in the usual sterile fashion.? A time-out was then performed. Entrance to the abdomen was gained via a 5 mm Visiport in the left upper quadrant. The abdomen was insufflated and briefly surveyed for signs of injury. There was none. 11 mm umbilical port was placed as well as 2 working ports along the right costal margin. Patient was then placed in reverse Trendelenburg position with the right side up. The gallbladder was covered by omental adhesions. These were bluntly taken down. The gallbladder fundus was distended and difficult to grasp. A laparoscopic needle was brought onto the field with 60 mL of dark bile removed. This allowed the fundus to be grasped and retracted cephalad. Due to the patient's body habitus the infundibulum was difficult to visualize. An additional 5 mm port was placed just lateral to the umbilical incision. A laparoscopic liver retractor was brought onto the field and the duodenum was gently retracted down. The infundibulum was then grasped. A combination of hook cautery and blunt dissection was used to carefully dissect out the cystic duct and artery until they could clearly be seen entering the gallbladder without any intervening structures. The gallbladder was dissected off the cystic plate to achieve the critical view. Once this was achieved the cystic duct and artery were each clipped with 2 clips proximally and 1 clip distally and transected with the scissors. A prominent vein was also present. Two clips were placed proximal and 1 clip distally before it was transected. The gallbladder was then taken off of the liver bed. And removed from the abdomen using an Endo-Catch bag. The gallbladder bed was surveyed for hemostasis. A small amount of bile which had spilled was suctioned from the abdomen. The ports were then removed under direct vision. The umbilical port fascia was closed with 0 Vicryl. The skin was closed with absorbable subcuticular suture. Instrument sponge and needle counts were correct at the end of the case. The p atient was then woken and transferred to the PACU in stable condition. Findings: Inflamed gallbladder, consistent with acute cholecystitis Anesthesia: WAYNE Surgeon: Melody Melendez MD Estimated blood loss (mL): 10 Specimen: Gallbladder Condition: stable Disposition: PACU
--- NOTE | 2023-01-23 13:35 | W.ANESCHARGE ---
Anesthesia Charges Start Date/Time Anesthesia Start Date: 01/23/23 Anesthesia Start Time: 10:38 Stop Date/Time Anesthesia Stop Date: 01/23/23 Anesthesia Stop Time: 13:31
[2023-01-23] MEDS: ACETAMINOPHEN 325 MG TABLET 650 MG PO (14:38)
[2023-01-23] MEDS: OXYCODONE 5 MG TABLET PO ×2 (14:38→15:09)
[2023-01-23 15:24] LABS: Folate, Serum 11.7 ng/mL (>=5.9)
[2023-01-23] MEDS: ONDANSETRON 2 MG/ML inj IVP (17:45)
--- NOTE | 2023-01-23 18:12 | PC.NURSE ---
Discharge: Patient pleasant and cooperative. Patient vitally stable, lungs clear, BS WNL, IV removed, catheter intact. Patient on 0.5-1 L of oxygen after surgery then progressed to room air. Patient rated pain at most 6/10 then decreased to 2/10 with pain medication. Five mg of oxy given x2 and tylenol. Patient tolerating regular diet, and patient urinated 300. Patient signed belongings sheet and discharge form. Patient had no further questions regarding discharge. Patient left the floor for home to [place] by wheelchair at 1800, with father and brother.
== END 2023-01-23 18:00 | disposition home or self-care (01) | DRG 418 ==
LOC: ED 19:08 → MEDSURG 20:51
PROVIDERS: Family Medicine; Surgery; Admitting Provider Family Medicine; Emergency Provider Family Medicine; Visit Provider Family Medicine
PROC: 0FT44ZZ Resection of Gallbladder, Percutaneous Endoscopic Approach (ICD-10-PCS; CPT 47562; principal; 2023-01-23 10:30)
DX: K80.00 Calculus of gallbladder with acute cholecystitis without obstruction (principal); Z68.42 Body mass index [BMI] 45.0-49.9, adult; R10.13 Epigastric pain; D50.9 Iron deficiency anemia, unspecified; K22.81 Esophageal polyp; R16.1 Splenomegaly, not elsewhere classified; K76.0 Fatty (change of) liver, not elsewhere classified; F10.90 Alcohol use, unspecified, uncomplicated
CPT/HCPCS: 36415; 36430; 43239; 731; 74177; 76705; 790; 80048; 80053; 80076; 82607; 82728; 82746; 82803; 83540; 83550; 83605; 83690; 85018; 85025; 86140; 86850; 86900; 86901; 86922; 88304; 88305; 88342; 94761; 99284; 99285; A9270; C9113; G0378; J0330; J0665; J1100; J1170; J1885; J2270; J2405; J2543; J2704; J3010; J3490; J7030; J7050; J7120; P9016; Q9967

== ENCOUNTER 2024-11-24 20:53 | Emergency (ER) | payer SELFPAY ==
--- OUTSIDE RECORDS SUMMARY | 2024-11-24 20:56 | XMS_ITS | Clinical Summary ---
Author Organization [facility] Address [address] [place] [id number] Care Team Providers Care Transfer Agent Name Role Phone No Ref-Primary, Physician Primary Care Provider Allergies No known active allergies Medications Omeprazole (PRILOSEC PO) Active Active Problems No known active problems Social History Tobacco Use Types Packs/Day Years Used Date Smoking Tobacco: Never Alcohol Use Standard Drinks/Week Comments Yes 0 (1 standard drink = 0.6 oz pur e alcohol) occ Adolescent Education Answer Date Record ed Getting School Help Needed Not on file 04/06 Sex and Gender Information Value Date Recorded Sex Assigned at Not on file Legal Sex Male 9:01 PM CDT Gender Identity Not on file Sexual Orientation Not on file Last Filed Vital Signs Vital Sign Reading Time Taken Comments Blood Pressure 130/82 01/21/2023 1:25 PM CDT Pulse 115 01/21/2023 1:25 PM CDT Temperature 36.7 C (98.1 F) 01/21/2023 1:25 PM CDT Respiratory Rate 14 01/21/2023 1:25 PM CDT Oxygen Saturation 99% 01/21/2023 1:25 PM CDT Inhaled Oxygen Concentration - - Weight 145.2 kg (320 lb) 01/21/2023 1:25 PM CDT Height 190.5 cm (6' 3) 03/11/2021 9:14 PM CDT Body Mass Index 40 03/11/2021 9:14 PM CDT Plan of Treatment Health Maintenance Due Date Last Done Comments ADVANCE CARE PLANNING 1998 ANNUAL REVIEW OF HM ORDERS 1998 YEARLY PREVENTIVE VISIT 2001 HIV SCREENING 2013 HPV IMMUNIZATION (1 - Male 3 -dose series) 2013 HEPATITIS C SCREENING 02/06/2016 HEPATITIS B IMMUNIZATION (1 of 3 - 19+ 3-dose series) 2017 DTAP/TDAP/TD IMMUNIZATION (1 - Tdap) 2023 COVID-19 Vaccine (1 - 2023-2 5 season) 2024 PHQ-2 (once per calendar year) 2024 INFLUENZA VACCINE (Season Ended) 2025 ZOSTER IMMUNIZATION (1 of 2) 02/06/2048 MENINGITIS IMMUNIZATION Aged Out No l onger eligible based on patient's age to complete this topic Pneumococcal Vaccine: Pediat rics (0 to 5 Years) and At-Risk Patients (6 to 49 Years) Aged Out No longer eligi ble based on patient's age to complete this topic Care Teams Transfer Agent Relationship Specialty Start Date End Date No Ref-Primary, Physician PCP - General 03/11/21
--- OUTSIDE RECORDS SUMMARY | 2024-11-24 20:56 | XMS_ITS | Clinical Summary ---
Author Organization [facility] [employer] Address [address] [place] [address] Care Team Providers Care Wirer Name Role Phone Unavailable Primary Care Provider Unavailabl e Source Comments [facility],non-owned Affiliates and Associated Physician Practices is amultiple site organization consisting of ambulatory clinics and hospital sitesin [place], [place] and [place]. This disclosure is being madepursuant to the Care Everywhere program and may not contain all information available regarding this patient. Last updated 18.[facility] [employer] Allergies No known active allergies Medications * Be aware that medications may not be up to date on this document. Alwaysverify current medications with the patient. No known medications Immunizations Immunization Administration Dates Next Due TDAP (7yrs+) 01/19/2017 Social History Tobacco Use Types Packs/Day Years Used Date Smoking Tobacco: Never Smokeless Tobacco: Never Sex and Gender Information Value Date Recorded Sex Assigned at Not on file Legal Sex Male 6:10 PM CDT Gender Identity Not on file Sexual Orientation Not on file Last Filed Vital Signs Vital Sign Reading Time Taken Comments Blood Pressure 130/56 01/19/2017 6:19 PM CDT Pulse 86 01/19/2017 6:19 PM CDT Temperature 36.5 C (97.7 F) 01/19/2017 6:19 PM CDT Respiratory Rate 18 01/19/2017 6:19 PM CDT Oxygen Saturation 100% 01/19/2017 6:19 PM CDT Inhaled Oxygen Concentration - - Weight 131.5 kg (290 lb) 01/19/2017 6:19 PM CDT Height 188 cm (6' 2) 01/19/2017 6:19 PM CDT Body Mass Index 37.23 01/19/2017 6:19 PM CDT Plan of Treatment Health Maintenance Due Date Last Done Comments HIV SCREENING 2013 HPV VACCINE (1 - Male 3-dose series) 2013 HEPATITIS C SCREENING 02/01/2016 HEPATITIS B VACCINE (1 of 3 - 19+ 3-dose series) 2017 COVID-19 VACCINE (1 - 2023-2 5 season) 2024 DEPRESSION SCREENING 07/15/2024 INFLUENZA VACCINE (Season Ended) 2025 DTAP/TDAP/TD VACCINES (2 - T d or Tdap) 01/19/2027 01/19/2017 ZOSTER VACCINE (1 of 2) 02/06/2048 HIB VACCINE Aged Out No longer eligi ble based on patient's age to complete this topic MENINGOCOCCAL (Group B) VACC INE SHARED DECISION-MAKING Aged Out No longer eligibl e based on patient's age to complete this topic MENINGOCOCCAL GROUPS A/C/Y/W VACCINE Aged Out No longer eligible b ased on patient's age to complete this topic PNEUMOCOCCAL VACCINE Aged Out No long er eligible based on patient's age to complete this topic
[2024-11-24 20:59] VITALS: BP 137/110; PULSE 112; RESP 16; TEMP 36.6; O2SAT 98; BMI 48.8
[2024-11-24 21:20] VITALS: BP 134/63; PULSE 102; RESP 16; O2SAT 97
--- OUTSIDE RECORDS SUMMARY | 2024-11-24 21:42 | XMS_ITS | Clinical Summary ---
Author Organization [facility] Address [address] [place] [id number] Care Team Providers Care Indigo Mixer Name Role Phone No Ref-Primary, Physician Primary [...] age to complete this topic Care Teams Indigo Mixer Relationship Specialty Start Date End Date No Ref-Primary, Physician PCP - General 03/11/21
--- OUTSIDE RECORDS SUMMARY | 2024-11-24 21:42 | XMS_ITS | Clinical Summary ---
Author Organization [facility] [employer] Address [address] [place] [address] Care Team Providers Care Veterinary Practitioner Name Role Phone Unavailable Primary Care Provider Unavailabl e Source Comments [facility],non-owned Affiliates and Associated Physician Practices is amultiple site organization consisting of ambulatory clinics and hospital sitesin [place], [place], [place] and [place]. This disclosure is being madepursuant to the Care Everywhere program and may not contain all information available regarding this patient. Last updated 18.[facility] [employer] Allergies No known active allergies Medications * [...]
[2024-11-24] MEDS: SIMETHICONE/SOD BICARB/CIT AC 1 EACH GRAN.EF.PK PO (21:55)
[2024-11-24] MEDS: GLUCAGON,HUMAN RECOMBINANT 1 MG/ML VIAL IV (21:55)
--- NOTE | 2024-11-26 19:37 | ED.GENADULT ---
HPI - General Adult General Chief complaint: Difficulty Swallowing Stated complaint: fluid stuck in throat Time Seen by Provider: 11/24/24 21:15 History of Present Illness HPI narrative: very pleasant 24 yo M presenting to the ED this evening with his brother for esophageal food obstruction. He was eating chicken this evening when a bite of chicken became lodged in his esophagus (he points to the level of his clavicles). he has a FB sensation there and is not able to swallow food or water. He is having to spit some of his saliva. No vomiting. No trouble breathing. No chest pain. No fever. Reports a h/o at least 4 or 5 prior esophageal food obstructions. has required EGD on his prior episodes. apparently done at hospitals in [place] and in [place]. 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 he doesn't have a correction GI doctor. Related Data Home Medications ?Medication ?Instructions ?Recorded ?Confirmed omeprazole magnesium 20 mg 40 mg PO DAILY 01/21/23 11/24/24 tablet,delayed release (Prilosec OTC) ferrous sulfate 325 mg (65 mg 325 mg PO DAILY 11/24/24 11/24/24 iron) tablet Allergies Allergy/AdvReac Type Severity Reaction Status Date / Time No Known Drug Allergies Allergy Verified 01/21/23 16:11 [facility] Medical History (Updated 11/24/24 @ 22:15 by Rick Barnes MD) Alcohol use ?Z78.9 - Other specified health status (ICD-10) Esophageal ulcer ?K22.10 - Ulcer of esophagus without bleeding (ICD-10) Microcytic anemia ?D50.9 - Iron deficiency anemia, unspecified (ICD-10) Surgical History (Updated 01/22/23 @ 16:26 by Tali Be MD) H/O esophagogastroduodenoscopy ?Z98.890 - Other specified postprocedural states (ICD-10) Family History (Updated 01/22/23 @ 16:27 by Tali Be MD) Mother Anemia Maternal Grandmother Anemia Social History (Updated 01/22/23 @ 16:29 by Tali Be MD) Narrative: Patient lives in [place]. His fiancee, father, and younger brother are all in the room with him. He travels a lot for work. He works in construction. He denies tobacco use and is a lifelong nonsmoker. Drinks once a week, usually 10 beers at a sitting. Denies recreational drug use. What is your current living situation?: I presently have a place to live Problems where you live: no known problems Problems where you live details: n/a In the past 12 months, utilities in danger of being shut off: no In past 12 months, lack of transportation kept you from medical appts, meetings, work, or getting things needed for daily living: no In the past 12 mos, have been you worried that your food would run out before you had money to buy more?: never true In the past 12 mos, the food you bought just didn't last and you didn't have money to buy more?: never true Highest level of school completed/degree received: high school graduate Smoking Status: Never smoker How often do you have a drink containing alcohol: 2-4 times a month How many standard drinks containing alcohol do you have on a typical day: 3 or 4 AUDIT-C Alcohol total score: 3 Non-prescribed substance use: denies use Caffeine: Yes (2 bottles of coke) How often does anyone, including family, friends and others, physically hurt you: never How often does anyone, including family, friends and others, insult or talk down to you: never How often does anyone, including family, friends and others, threaten you with harm: never How often does anyone, including family, friends and others, scream or curse at you: never service: No Exam Narrative: Exam Narrative: Gen: Robust. non-toxic. well developed. no respiratory distress. HEENT: normal oropharynx. No trismus. PHarynx and tonsils normal. no stridor. voice and phonation normal. CV: RRR. No MRG. No chest wall crepitus. No tenderness. PULM: breathing easily. Lungs Clear. Abd: nontender. no masses. No HSM. MUSK: no deformity. No edema. Skin: Warm, dry, well perfused. No rashes. no petechiae. Neuro: AOx3. CN II-VII intact. Normal sensation an motor x 4 ext Psych: calm and polite. Course Course ED Course: Exam in ER room 8. IV placed by nursing. Glucagon 1mg IV followed by EZ gas PO. successful in causing passage of the food bolus. Pt tolerating PO. Feels better. discussed need for follow up and ongoing GI care with patient and his family . questions answered. Vital Signs Vital signs: Initial Vital Signs Temperature 97.8 F 11/24/24 20:59 Temperature Source Temporal Artery Scan 11/24/24 20:59 Pulse Rate 112 H 11/24/24 20:59 Respiratory Rate 16 11/24/24 20:59 Blood Pressure 137/110 H 11/24/24 20:59 Blood Pressure Mean 119 H 11/24/24 20:59 Blood Pressure Position Sitting 11/24/24 20:59 Pulse Oximetry 98 11/24/24 20:59 Oxygen Delivery Method Room Air 11/24/24 20:59 Vital Signs Temperature 97.8 F 11/24/24 20:59 Pulse Rate 112 H 11/24/24 20:59 Respiratory Rate 16 11/24/24 20:59 Blood Pressure 137/110 H 11/24/24 20:59 Pulse Oximetry 98 11/24/24 20:59 Oxygen Delivery Method Room Air 11/24/24 20:59 Temperature 97.8 F 11/24/24 20:59 Pulse Rate 102 H 11/24/24 21:20 Respiratory Rate 16 11/24/24 21:20 Blood Pressure 134/63 11/24/24 21:20 Pulse Oximetry 97 11/24/24 21:20 Oxygen Delivery Method Room Air 11/24/24 21:20 Medications Administered Medications: Discontinued Medications Generic Name Dose Route Start Last Admin Trade Name Freq PRN Reason Stop Dose Admin Glucagon 1 mg 11/24/24 21:30 11/24/24 21:55 Glucagon,Human Recombinant 1 Mg/Ml Vial IV 11/24/24 21:31 1 mg ONCE ONE Administration Simethicone/Sodium Bicarb/Citric Ac 1 each 11/24/24 21:30 11/24/24 21:55 Simethicone/Sod Bicarb/Cit Ac 1 Each Gran.Ef.Pk PO 11/24/24 21:31 1 each ONCE ONE Administration Medical Decision Making MDM Narrative Medical decision making narrative: 24 yo M presents with esophageal obstruction due to chicken stuck in his esophagus at the level of the thoracic inlet. Airway patent. No signs of esophageal perforation or Boerrhave's syndrome. Hemodynamically stable. Was successful in passing the food bolus after gucagon and EZ gas. Subequently tolerating PO without problems. At this point stable to DC from ER. Needs outpatient GI follow up. He describes several prior episodes of esophageal obstruction, all of which required EGD to resolve the obstruction. Has Vásquez's. Is on PPI. Does not have a regular GI doc for follow up because [place]. Encouraged to call for GI follow up. Precautions for return to ER reviewed. Questions answered. Discharge Plan Discharge Clinical Impression: Food impaction of esophagus Patient Disposition: Home, Self-Care Condition: Stable Instructions: Food Impaction (ED) Additional Instructions: I am glad that the chicken came out of your esophagus tonight. For the next several days, please try to stick to a clear liquid and soft food diet. Avoid chewy or hard or crunchy foods. For the neck is several weeks, try to stick to a very small bites of protein or meat. Better yet, put your meet in a park naturalist to help keep it soft and easier to swallow. Continue on your stomach acid medicine. If you have any problems, such as more food getting stuck in your esophagus, please return to the ER right away. It is very important for you to follow-up with a GI doctor to get a repeat endoscopy. The best way to figure this out would be to call your insurance company tomorrow and ask them which GI doctors are ?in network? and whether not they require a referral from your primary care provider in order to see GI. You could also call the [facility] to schedule an appointment. To schedule an appointment with [facility] you can call [phone]. To make an appointment to set up a checkup for a primary care doctor, you can call your previous clinic or any clinic of your choice. If you would like to have primary care here in [place] you can call [phone] Prescriptions: No Action omeprazole magnesium [Prilosec OTC] 20 mg tablet,delayed release (DR/EC) 40 mg PO DAILY ferrous sulfate 325 mg (65 mg iron) tablet 325 mg PO DAILY Follow Up/Referrals: Provider,Not a Local [Primary Care Provider] - Stand Alone Forms: [facility] Info Instructions
== END 2024-11-24 22:26 | disposition home or self-care (01) ==
PROVIDERS: Emergency Provider Emergency Medicine
DX: T18.128A Food in esophagus causing other injury, initial encounter (principal)
CPT/HCPCS: 99283; J1610